=== PATIENT | male | born 1945 | race Caucasian/White ===

== ENCOUNTER → 2016-09-07 | Outpatient (CLI) | payer OTHER | LOC: FCPNEURO 23:31 | PROVIDERS: ATTEND Psychiatry & Neurology Sleep Medicine | DX: G47.33 Obstructive sleep apnea (adult) (pediatric) (principal) ==

== ENCOUNTER → 2018-02-27 | Outpatient (CLI) | payer OTHER ==
[~2018-02-27] MED LIST: IOPAMIDOL (ISOVUE-300) 100 ML BTL ONE
== END ==
LOC: FIMAGING 08:43
PROVIDERS: ATTEND Specialist
DX: R97.21 Rising PSA following treatment for malignant neoplasm of prostate (principal); Z85.46 Personal history of malignant neoplasm of prostate
CPT/HCPCS: 74177; 78306; A9503; Q9967